=== PATIENT | male | born 1965 | race Asian ===

== ENCOUNTER 2016-09-24 23:55 | Emergency (ER) | payer MEDICAID, MEDICARE ==
[~2016-09-24] VITALS: Ht 165.1 cm; Wt 62.6 kg
[2016-09-25] VITALS: BP_SYST 138
--- NOTE | 2016-09-25 | NUR ---
Placed in room 7 . Placed on manager monitoring, blood pressure machine and pulse oximeter. To gown for exam. Side rails up. Report given to Troy RODRIGUEZ.
--- NOTE | 2016-09-25 00:10 | NUR ---
Pt presents to ED with c/o feeling foreign body stuck in his throat after eating rice, chicken, and broccoli. Pt coughed out pink mucus and clear color secretion. No sign of acute respiratory distress noted. A&Ox4, denies chestpain, denies N/V/D. Will continue to monitor
--- NOTE | 2016-09-25 00:15 | NUR ---
MD George at bedside examining pt
[2016-09-25] MEDS ORDERED: NITROGLYCERIN 0.4 MG TAB.SUBL SL ONE (00:30)
--- NOTE | 2016-09-25 01:30 | NUR ---
Pt stated he feel that the stucking sensation in his throat is less sever, but it's still there. MD Pelaez notified
[2016-09-25] MEDS ORDERED: GLUCAGON,HUMAN RECOMBINANT 1 MG VIAL IVP ONE (01:45)
--- NOTE | 2016-09-25 02:43 | NUR ---
Elisa boles in ED - 09/25/16 at 0244 by [email or web address] Pt unable to expectorate foreign body in the throat, still c/o of sensation in the throat
--- NOTE | 2016-09-25 02:44 | NUR ---
Pt unable to expectorate foreign body in the throat, still c/o uncomfortable sensation in the throat
[2016-09-25] MEDS ORDERED: methylPREDNISolone SOD SUCC/PF 62.5 MG/ML VIAL IVP ONE (02:45)
[2016-09-25 02:54] LABS: BASOPHILS % (AUTO) 0.5 % (0.0-2.0); EOSINOPHILS # (AUTO) 0.7 K/uL (0.0-0.4); HEMATOCRIT 42.4 % (36-54); HEMOGLOBIN 14.2 g/dL (14.0-18.0); LYMPHOCYTES # (AUTO) 1.9 K/uL (1.0-5.5); MEAN CORPUSCULAR HEMOGLOBIN 28 pg (27-31); MEAN CORPUSCULAR HGB CONC 34 % (32-36); MEAN CORPUSCULAR VOLUME 85 fL (79.0-98.0); MONOCYTES # (AUTO) 0.6 K/uL (0.0-1.0); MONOCYTES % (AUTO) 6.6 % (1.7-9.3); NEUTROPHILS # (AUTO) 6.5 K/uL (1.8-7.7); NEUTROPHILS % (AUTO) 65.9 % (40.0-70.0); PLATELET COUNT (AUTO) 304 K/uL (130-430); RED BLOOD CELL COUNT(AUTO) 5.02 MIL/uL (4.2-6.2); RED CELL DISTRIBUTION WIDTH 12.3 % (9.0-15.0); WHITE BLOOD COUNT (AUTO) 9.7 K/uL (4.8-10.8)
[2016-09-25 03:11] LABS: CALCIUM 8.9 mg/dL (8.4-11.0); CREATININE 1.14 mg/dL (0.55-1.30); POTASSIUM 3.2 mmol/L (3.5-5.1)
[2016-09-25 03:16] LABS: ALBUMIN 3.7 g/dL (3.4-4.8); TOTAL BILIRUBIN 0.6 mg/dL (0.0-1.0); TOTAL PROTEIN, SERUM 6.8 g/dL (6.4-8.3)
[2016-09-25 03:30] VITALS: BP_SYST 112
--- NOTE | 2016-09-25 03:30 | NUR ---
Patient given written and verbal discharge instructions and verbalizes understanding. ER MD George discussed with patient the results and treatment provided. Patient in stable condition. ID arm band removed. IV catheter removed intact and dressing applied, no active bleeding. No rx given. Patient educated on pain management and to follow up with PMD. Pain Scale 0/10 Opportunity for questions provided and answered.
== END 2016-09-25 03:30 | disposition home or self-care (01) ==
LOC: SED 23:55
DX: R09.89 Other specified symptoms and signs involving the circulatory and respiratory systems (principal); R13.10 Dysphagia, unspecified; E87.6 Hypokalemia; Z88.5 Allergy status to narcotic agent
CPT/HCPCS: 36415; 71020; 72040; 80053; 85025; 96374; 96375; 99285; J1610; J2930

== ENCOUNTER 2017-07-17 19:41 | Emergency (ER) | payer MEDICAID ==
[~2017-07-17] VITALS: Ht 165.1 cm; Wt 61.2 kg
[2017-07-17 19:45] VITALS: BP_SYST 119
[2017-07-17] MEDS ORDERED: KETOROLAC TROMETHAMINE 60 MG/2 ML VIAL IM ONE (20:30)
[2017-07-17 21:15] VITALS: BP_SYST 133
== END 2017-07-17 21:15 | disposition home or self-care (01) ==
LOC: SED 19:41
DX: M25.562 Pain in left knee (principal); Z88.5 Allergy status to narcotic agent
CPT/HCPCS: 73564; 96372; 99284; J1885

== ENCOUNTER 2018-04-14 20:53 | Emergency (ER) | payer MEDICAID ==
[~2018-04-14] VITALS: Ht 165.1 cm; Wt 59.0 kg
[2018-04-14 21:17] VITALS: BP_SYST 148
[2018-04-15] MEDS ORDERED: IBUPROFEN 800 MG TABLET PO ONE (00:30)
[2018-04-15 01:10] VITALS: BP_SYST 138
== END 2018-04-15 01:10 | disposition home or self-care (01) ==
LOC: SED 20:53
DX: M13.821 Other specified arthritis, right elbow (principal); M25.521 Pain in right elbow; R03.0 Elevated blood-pressure reading, without diagnosis of hypertension
CPT/HCPCS: 99284

== ENCOUNTER 2018-12-11 19:09 | Emergency (ER) | payer MEDICAID ==
[~2018-12-11] VITALS: Ht 165.1 cm; Wt 59.0 kg
[2018-12-11 19:15] VITALS: BP_SYST 124
[2018-12-11 19:52] LABS: BASOPHILS % (AUTO) 0.2 % (0.0-2.0); EOSINOPHILS # (AUTO) 0.1 K/uL (0.0-0.4); EOSINOPHILS % (AUTO) 0.5 % (0.0-4.0); HEMATOCRIT 48.2 % (36-54); HEMOGLOBIN 16.3 g/dL (14.0-18.0); LYMPHOCYTES # (AUTO) 0.7 K/uL (1.0-5.5); LYMPHOCYTES % (AUTO) 4.5 % (20.5-51.5); MEAN CORPUSCULAR HEMOGLOBIN 29 pg (27-31); MEAN CORPUSCULAR HGB CONC 34 % (32-36); MEAN CORPUSCULAR VOLUME 86 fL (79.0-98.0); MONOCYTES # (AUTO) 0.3 K/uL (0.0-1.0); MONOCYTES % (AUTO) 1.9 % (1.7-9.3); NEUTROPHILS # (AUTO) 14.5 K/uL (1.8-7.7); NEUTROPHILS % (AUTO) 92.9 % (40.0-70.0); PLATELET COUNT (AUTO) 293 K/uL (130-430); RED BLOOD CELL COUNT(AUTO) 5.59 MIL/uL (4.2-6.2); RED CELL DISTRIBUTION WIDTH 13.4 % (9.0-15.0); WHITE BLOOD COUNT (AUTO) 15.6 K/uL (4.8-10.8)
[2018-12-11 20:12] LABS: CALCIUM 9.1 mg/dL (8.4-11.0); CREATININE 1.07 mg/dL (0.55-1.30)
[2018-12-11 20:16] LABS: ALBUMIN 4.1 g/dL (3.4-4.8)
[2018-12-11] MEDS ORDERED: NACL 0.9% 1,000 ML IV ONE (20:30)
[2018-12-11] MEDS ORDERED: ONDANSETRON HCL 4 MG/2 ML VIAL IVP ONE (20:30)
[2018-12-11 23:03] VITALS: BP_SYST 118
== END 2018-12-11 23:03 | disposition home or self-care (01) ==
LOC: SED 19:09
DX: K52.9 Noninfective gastroenteritis and colitis, unspecified (principal); Z88.6 Allergy status to analgesic agent
CPT/HCPCS: 36415; 74176; 80053; 83690; 85025; 96361; 96374; 99284; J2405; J7030

== ENCOUNTER 2021-09-23 06:23 | Emergency (ER) | payer MEDICAID, OTHER ==
[~2021-09-23] VITALS: Ht 154.9 cm; Wt 59.0 kg
[2021-09-23 06:36] VITALS: BP_SYST 147
[2021-09-23] MEDS ORDERED: IBUP-1969 PO (06:50)
[2021-09-23 07:34] VITALS: BP_SYST 147
== END 2021-09-23 07:35 | disposition home or self-care (01) ==
LOC: SED 06:23
DX: M65.242 Calcific tendinitis, left hand (principal); Z88.5 Allergy status to narcotic agent
CPT/HCPCS: 99283